=== PATIENT | male | born 1935 | race Caucasian/White ===

== ENCOUNTER 2016-12-01 11:00 | Outpatient (CLI) | payer MEDICARE | END 2016-12-01 11:01 | disposition home or self-care (01) | LOC: LAB.F 11:00 | PROVIDERS: ATTEND Internal Medicine Cardiovascular Disease | DX: I42.9 Cardiomyopathy, unspecified (principal); I48.2 Chronic atrial fibrillation | CPT/HCPCS: 85610 ==

== ENCOUNTER 2016-12-05 07:09 | Outpatient (CLI) | payer MEDICARE | END 2016-12-05 07:10 | disposition home or self-care (01) | LOC: LAB.F 07:09 | PROVIDERS: ATTEND Internal Medicine Cardiovascular Disease | DX: I42.9 Cardiomyopathy, unspecified (principal); I48.2 Chronic atrial fibrillation | CPT/HCPCS: 85610 ==

== ENCOUNTER 2016-12-08 07:15 | Outpatient (CLI) | payer MEDICARE | END 2016-12-08 07:16 | disposition home or self-care (01) | LOC: LAB.F 07:15 | PROVIDERS: ATTEND Internal Medicine Cardiovascular Disease | DX: I42.9 Cardiomyopathy, unspecified (principal); I48.2 Chronic atrial fibrillation | CPT/HCPCS: 85610 ==

== ENCOUNTER 2016-12-12 07:03 | Outpatient (CLI) | payer MEDICARE | END 2016-12-12 07:04 | disposition home or self-care (01) | LOC: LAB.F 07:03 | PROVIDERS: ATTEND Internal Medicine Cardiovascular Disease | DX: I42.9 Cardiomyopathy, unspecified (principal); I48.2 Chronic atrial fibrillation | CPT/HCPCS: 85610 ==

== ENCOUNTER 2016-12-19 07:09 | Outpatient (CLI) | payer MEDICARE | END 2016-12-19 07:10 | disposition home or self-care (01) | LOC: LAB.F 07:09 | PROVIDERS: ATTEND Internal Medicine Cardiovascular Disease | DX: I42.9 Cardiomyopathy, unspecified (principal) | CPT/HCPCS: 85610 ==

== ENCOUNTER 2016-12-29 07:07 | Outpatient (CLI) | payer MEDICARE | END 2016-12-29 07:08 | disposition home or self-care (01) | LOC: LAB.F 07:07 | PROVIDERS: ATTEND Internal Medicine Cardiovascular Disease | DX: I42.9 Cardiomyopathy, unspecified (principal); I48.2 Chronic atrial fibrillation | CPT/HCPCS: 85610 ==

== ENCOUNTER 2017-01-09 07:07 | Outpatient (CLI) | payer MEDICARE | END 2017-01-09 07:08 | disposition home or self-care (01) | LOC: LAB.F 07:07 | PROVIDERS: ATTEND Internal Medicine Cardiovascular Disease | DX: I42.9 Cardiomyopathy, unspecified (principal); I48.2 Chronic atrial fibrillation | CPT/HCPCS: 85610 ==

== ENCOUNTER 2017-03-28 09:59 | Outpatient (CLI) | payer MEDICARE | END 2017-03-28 10:00 | disposition home or self-care (01) | LOC: LAB.F 09:59 | PROVIDERS: ATTEND Pharmacist Pharmacist Clinician (PhC)/ Clinical Pharmacy Specialist | DX: I42.9 Cardiomyopathy, unspecified (principal); I48.2 Chronic atrial fibrillation | CPT/HCPCS: 85610 ==

== ENCOUNTER 2017-04-27 09:11 | Outpatient (CLI) | payer MEDICARE | END 2017-04-27 09:12 | disposition home or self-care (01) | LOC: LAB.F 09:11 | PROVIDERS: ATTEND Internal Medicine Cardiovascular Disease | DX: I42.9 Cardiomyopathy, unspecified (principal); I48.2 Chronic atrial fibrillation | CPT/HCPCS: 85610 ==

== ENCOUNTER 2017-05-28 08:52 | Outpatient (CLI) | payer MEDICARE | END 2017-05-28 08:53 | disposition home or self-care (01) | LOC: LAB.F 08:52 | PROVIDERS: ATTEND Internal Medicine Cardiovascular Disease | DX: I42.9 Cardiomyopathy, unspecified (principal); I48.2 Chronic atrial fibrillation | CPT/HCPCS: 85610 ==

== ENCOUNTER 2017-06-22 07:23 | Outpatient (CLI) | payer MEDICARE ==
[2017-06-22 11:10] LABS: ALT ALANINE AMINOTRANSFERASE 22 IU/L (10-60); AST ASPARTATE AMINOTRANSFERASE 16 IU/L (10-42); CHOL/HDL RATIO 2.6 (<5.0); CHOLESTEROL 125 mg/dL; HDL CHOLESTEROL 49 mg/dL; LDL CHOLESTEROL,CALCULATED 61 mg/dL; LDL/HDL RATIO 1.2 (<3.6); VLDL CHOLESTEROL 15 mg/dL
== END 2017-06-22 07:24 | disposition home or self-care (01) ==
LOC: LAB.F 07:23
PROVIDERS: ATTEND Internal Medicine Cardiovascular Disease
DX: I42.9 Cardiomyopathy, unspecified (principal); I48.2 Chronic atrial fibrillation; Z79.899 Other long term (current) drug therapy
CPT/HCPCS: 36415; 80061; 83721; 84450; 84460; 85610

== ENCOUNTER 2017-07-11 08:11 | Outpatient (CLI) | payer MEDICARE | END 2017-07-11 08:12 | disposition home or self-care (01) | LOC: LAB.F 08:11 | PROVIDERS: ATTEND Internal Medicine Cardiovascular Disease | DX: I42.9 Cardiomyopathy, unspecified (principal); I48.2 Chronic atrial fibrillation | CPT/HCPCS: 85610 ==

== ENCOUNTER 2017-08-08 07:08 | Outpatient (CLI) | payer MEDICARE | END 2017-08-08 07:09 | disposition home or self-care (01) | LOC: LAB.F 07:08 | PROVIDERS: ATTEND Internal Medicine Cardiovascular Disease | DX: I42.9 Cardiomyopathy, unspecified (principal); I48.2 Chronic atrial fibrillation | CPT/HCPCS: 85610 ==

== ENCOUNTER 2017-09-05 07:46 | Outpatient (CLI) | payer MEDICARE | END 2017-09-05 07:47 | disposition home or self-care (01) | LOC: LAB.F 07:46 | PROVIDERS: ATTEND Internal Medicine Cardiovascular Disease | DX: I42.9 Cardiomyopathy, unspecified (principal); I48.2 Chronic atrial fibrillation | CPT/HCPCS: 85610 ==

== ENCOUNTER 2017-09-10 09:17 | Outpatient (CLI) | payer MEDICARE | END 2017-09-10 09:18 | disposition home or self-care (01) | LOC: LAB.F 09:17 | PROVIDERS: ATTEND Internal Medicine Cardiovascular Disease | DX: I42.9 Cardiomyopathy, unspecified (principal); I48.2 Chronic atrial fibrillation | CPT/HCPCS: 85610 ==

== ENCOUNTER 2017-10-03 07:11 | Outpatient (CLI) | payer MEDICARE | END 2017-10-03 07:12 | disposition home or self-care (01) | LOC: LAB.F 07:11 | PROVIDERS: ATTEND Internal Medicine Cardiovascular Disease | DX: I42.9 Cardiomyopathy, unspecified (principal); I48.2 Chronic atrial fibrillation | CPT/HCPCS: 85610 ==

== ENCOUNTER 2017-10-31 07:09 | Outpatient (CLI) | payer MEDICARE | END 2017-10-31 07:10 | disposition home or self-care (01) | LOC: LAB.F 07:09 | PROVIDERS: ATTEND Internal Medicine Cardiovascular Disease | DX: I48.2 Chronic atrial fibrillation (principal) | CPT/HCPCS: 85610 ==

== ENCOUNTER 2017-11-28 07:16 | Outpatient (CLI) | payer MEDICARE | END 2017-11-28 07:17 | disposition home or self-care (01) | LOC: LAB.F 07:16 | PROVIDERS: ATTEND Internal Medicine Cardiovascular Disease | DX: I42.9 Cardiomyopathy, unspecified (principal); I48.2 Chronic atrial fibrillation | CPT/HCPCS: 85610 ==

== ENCOUNTER 2017-12-26 07:16 | Outpatient (CLI) | payer MEDICARE | END 2017-12-26 07:17 | disposition home or self-care (01) | LOC: LAB.F 07:16 | PROVIDERS: ATTEND Internal Medicine Cardiovascular Disease | DX: I42.9 Cardiomyopathy, unspecified (principal); I48.2 Chronic atrial fibrillation | CPT/HCPCS: 85610 ==

== ENCOUNTER 2018-01-23 07:25 | Outpatient (CLI) | payer MEDICARE | END 2018-01-23 07:26 | disposition home or self-care (01) | LOC: LAB.F 07:25 | PROVIDERS: ATTEND Internal Medicine Cardiovascular Disease | DX: I42.9 Cardiomyopathy, unspecified (principal); I48.2 Chronic atrial fibrillation | CPT/HCPCS: 85610 ==

== ENCOUNTER 2018-02-20 07:06 | Outpatient (CLI) | payer MEDICARE | END 2018-02-20 07:07 | disposition home or self-care (01) | LOC: LAB.F 07:06 | PROVIDERS: ATTEND Internal Medicine Cardiovascular Disease | DX: I42.9 Cardiomyopathy, unspecified (principal); I48.2 Chronic atrial fibrillation | CPT/HCPCS: 85610 ==

== ENCOUNTER 2018-03-06 09:44 | Outpatient (CLI) | payer MEDICARE ==
[2018-03-06 18:23] LABS: INR 2.5 (0.8-1.2); PT - PROTHROMBIN TIME 28.3 secs (9.9-12.6)
== END 2018-03-06 09:45 | disposition home or self-care (01) ==
LOC: LAB.F 09:44
PROVIDERS: ATTEND Internal Medicine Cardiovascular Disease
DX: I42.9 Cardiomyopathy, unspecified (principal); I48.2 Chronic atrial fibrillation
CPT/HCPCS: 36415; 85610

== ENCOUNTER 2018-03-20 08:15 | Outpatient (CLI) | payer MEDICARE ==
[2018-03-20 10:45] LABS: CALCIUM 8.6 mg/dL (8.5-10.3); CREATININE 0.9 mg/dL (0.6-1.2)
== END 2018-03-20 08:16 | disposition home or self-care (01) ==
LOC: LAB.F 08:15
PROVIDERS: ATTEND Internal Medicine Cardiovascular Disease
DX: I48.2 Chronic atrial fibrillation (principal); I42.9 Cardiomyopathy, unspecified
CPT/HCPCS: 36415; 80048; 85610

== ENCOUNTER 2018-04-10 15:11 | Outpatient (CLI) | payer MEDICARE | END 2018-04-10 15:12 | disposition home or self-care (01) | LOC: LAB.F 15:11 | PROVIDERS: ATTEND Internal Medicine Cardiovascular Disease | DX: I48.2 Chronic atrial fibrillation (principal) | CPT/HCPCS: 85610 ==

== ENCOUNTER 2018-05-01 07:06 | Outpatient (CLI) | payer MEDICARE | END 2018-05-01 07:07 | disposition home or self-care (01) | LOC: LAB.F 07:06 | PROVIDERS: ATTEND Internal Medicine Cardiovascular Disease | DX: I48.2 Chronic atrial fibrillation (principal) | CPT/HCPCS: 85610 ==

== ENCOUNTER 2018-05-15 07:04 | Outpatient (CLI) | payer MEDICARE | END 2018-05-15 07:05 | disposition home or self-care (01) | LOC: LAB.F 07:04 | PROVIDERS: ATTEND Internal Medicine Cardiovascular Disease | DX: I48.2 Chronic atrial fibrillation (principal) | CPT/HCPCS: 85610 ==

== ENCOUNTER 2018-06-05 07:34 | Outpatient (CLI) | payer MEDICARE | END 2018-06-05 07:35 | disposition home or self-care (01) | LOC: LAB.F 07:34 | PROVIDERS: ATTEND Internal Medicine Cardiovascular Disease | DX: I48.2 Chronic atrial fibrillation (principal) | CPT/HCPCS: 85610 ==

== ENCOUNTER 2018-07-03 08:24 | Outpatient (CLI) | payer MEDICARE | END 2018-07-03 08:25 | disposition home or self-care (01) | LOC: LAB.F 08:24 | PROVIDERS: ATTEND Internal Medicine Cardiovascular Disease | DX: I48.2 Chronic atrial fibrillation (principal) | CPT/HCPCS: 85610 ==

== ENCOUNTER 2018-07-23 14:41 | Outpatient (CLI) | payer MEDICARE | END 2018-07-23 14:42 | disposition home or self-care (01) | LOC: LAB.F 14:41 | PROVIDERS: ATTEND Internal Medicine Cardiovascular Disease | DX: I48.2 Chronic atrial fibrillation (principal) | CPT/HCPCS: 85610 ==

== ENCOUNTER 2018-07-29 08:53 | Day surgery (SDC) | payer MEDICARE ==
[2018-07-29] MEDS ORDERED: LACTATED RINGERS 1,000 ML IV ONE ×2 (09:21→10:37)
[2018-07-29] MEDS ORDERED: fentaNYL 100 MCG/2 ML VIAL IVP ONE (09:45)
[2018-07-29] MEDS ORDERED: MIDAZOLAM 2 MG/2 ML VIAL IVP ONE (09:45)
[2018-07-29 11:13] VITALS: BP 102/66
== END 2018-07-29 08:54 | disposition home or self-care (01) ==
LOC: SDS 08:53
PROVIDERS: ATTEND Surgery
PROC: 0DBP8ZZ Excision of Rectum, Via Natural or Artificial Opening Endoscopic (ICD-10-PCS; principal; 2018-07-29 10:30)
DX: Z12.11 Encounter for screening for malignant neoplasm of colon (principal); K62.1 Rectal polyp; K64.8 Other hemorrhoids; K57.30 Diverticulosis of large intestine without perforation or abscess without bleeding; I10 Essential (primary) hypertension; I49.9 Cardiac arrhythmia, unspecified; D68.9 Coagulation defect, unspecified; D64.9 Anemia, unspecified; Z87.891 Personal history of nicotine dependence; Z79.01 Long term (current) use of anticoagulants
CPT/HCPCS: 45385; 85610; J7120

== ENCOUNTER 2018-08-14 10:59 | Outpatient (CLI) | payer MEDICARE ==
--- NOTE | 2018-08-14 13:08 | Ultrasound Report ---
Reason: TESTICULAR PAIN Procedure Date: 08/14/2018 Accession Number: [id number] / [id number] Procedure: US - Testicle w/Doppler CPT Code: FULL RESULT: EXAM: SCROTAL ULTRASOUND EXAM DATE: 08/14/2018 11:39 AM. CLINICAL HISTORY: Testicular pain. COMPARISON: None. TECHNIQUE: Real-time scanning was performed with static images obtained. Color-flow images were utilized. FINDINGS: Right: Testis: 3.3 x 2.4 x 2.3 cm. Normal size and echotexture. No mass, calcification, or abnormal blood flow. Epididymis: 0.7 x 0.9 x 1.3 cm. A few epididymal cysts are noted. Hydrocele: Moderate, minimally complex hydrocele. Varicocele: None. Left: Testis: 3.2 x 2.3 x 2.2 cm. Normal size and echotexture. No mass, calcification, or abnormal blood flow. Epididymis: 0.9 x 0.7 x 1.0 cm. A few epididymal head cysts are noted. Hydrocele: Moderate size, minimally complex hydrocele. Varicocele: None. IMPRESSION: Bilateral hydrocele. RADIA
== END 2018-08-14 11:00 | disposition home or self-care (01) ==
LOC: DI 10:59
PROVIDERS: ATTEND Nurse Practitioner Family
DX: N43.3 Hydrocele, unspecified (principal); I48.2 Chronic atrial fibrillation
CPT/HCPCS: 76870; 85610; 93975

== ENCOUNTER 2018-08-14 13:43 | Outpatient (CLI) | payer MEDICARE | END 2018-08-14 13:44 | disposition home or self-care (01) | LOC: LAB.F 13:43 | PROVIDERS: ATTEND Internal Medicine Cardiovascular Disease | DX: I48.2 Chronic atrial fibrillation (principal) | CPT/HCPCS: 85610 ==

== ENCOUNTER 2018-09-11 07:13 | Outpatient (CLI) | payer MEDICARE | END 2018-09-11 07:14 | disposition home or self-care (01) | LOC: LAB.F 07:13 | PROVIDERS: ATTEND Internal Medicine Cardiovascular Disease | DX: I48.2 Chronic atrial fibrillation (principal) | CPT/HCPCS: 85610 ==

== ENCOUNTER 2018-09-29 16:38 | Outpatient (CLI) | payer MEDICARE | END 2018-09-29 16:39 | disposition critical access hospital (66) | LOC: EMS 16:38 | PROVIDERS: ATTEND Surgery | DX: R53.1 Weakness (principal); R00.1 Bradycardia, unspecified | CPT/HCPCS: A0425; A0427 ==

== ENCOUNTER 2018-09-29 17:09 | Observation (INO) | payer MEDICARE ==
--- NOTE | 2018-09-29 17:38 | ED Physician Documentation ---
PD HPI DYSPNEA - Stated complaint Stated Complaint: BRADYCARDIA - Chief complaint Chief Complaint: Cardiac - History obtained from History obtained from: Patient - History of Present Illness Timing - onset: Today (He states he believes he double dosed on his diltiazem and furosemide earlier today. He took his initial dose about 8 AM and then another dose perhaps an hour or 2 later thinking he had not. He then remembered he did take one earlier. He thought he was feeling okay through the day until mid afternoon about 3:00 when he started feeling general weakness and lightheadedness with walking around. He denied any chest pain or dyspnea per se. He denied any near syncope. He did come here with continued lightheaded symptoms. Here he was found to be bradycardic in the 30s and blood pressure initially 107/56 but did get transiently hypotensive down to 87 systolic. He was still awake and alert and conversant with that.) Timing - onset during: Light activity Timing - duration: Hours Timing - details: Gradual onset (over few hours), Still present Inciting event(s): Other (took 2 doses of his diltiazem unintentionally this morning.). No: Out of meds, URI Improved by: Rest Worsened by: Exertion Associated symptoms: No: Fever, Cough, Hemoptysis, Wheezing, Bilateral edema Similar symptoms before: Has not had sx before (He has been on the same doses of metoprolol and diltiazem for the last couple of years without any similar episodes in the past.) Recently seen: Not recently seen Review of Systems Constitutional: denies: Fever, Chills Nose: denies: Rhinorrhea / runny nose, Congestion Throat: denies: Sore throat Cardiac: denies: Chest pain / pressure, Palpitations Respiratory: reports: Dyspnea. denies: Cough GI: denies: Abdominal Pain, Nausea, Vomiting, Diarrhea, Bloody / black stool Musculoskeletal: denies: Extremity swelling Neurologic: reports: Generalized weakness. denies: Near syncope, Syncope Psychiatric: denies: Depressed Endocrine: denies: Polydypsia Immunocompromised: denies: Immunocompromised PD PAST MEDICAL HISTORY - Past Medical History Cardiovascular: Hypertension, High cholesterol, Atrial fibrillation - Past Surgical History Past Surgical History: Yes - Present Medications Home Medications: Ambulatory Orders Medication Instructions Recorded Confirmed Ascorbic Acid [Vitamin C] 1 - 2 tab PO DAILY 07/25/18 09/29/18 Aspirin [Aspirin EC] 81 mg PO DAILY 07/25/18 09/29/18 Atorvastatin Calcium 40 mg PO QPM 07/25/18 09/29/18 Ferrous Sulfate 325 mg PO DAILY 07/25/18 09/29/18 Furosemide [Lasix] 20 mg PO DAILY 07/25/18 09/29/18 Latanoprost/Pf [Latanoprost 0.005% 1 drops EACHEYE QPM 07/25/18 09/29/18 Eye Drop] Lisinopril 2.5 mg PO DAILY 07/25/18 09/29/18 Metoprolol Tartrate [Lopressor] 25 mg PO BID 07/25/18 09/29/18 Travoprost [Travatan Z] 1 drops EACHEYE QPM 07/25/18 09/29/18 Warfarin [Coumadin] 2.5 mg PO DAILY 07/25/18 09/29/18 Warfarin [Coumadin] 5 mg PO 1400 07/25/18 09/29/18 dilTIAZem HCl [Diltiazem ER] 120 mg PO DAILY 07/25/18 09/29/18 - Allergies Allergies/Adverse Reactions: Allergies Allergy/AdvReac Type Severity Reaction Status Date / Time No Known Drug Allergies Allergy Verified 09/29/18 17:25 - Social History Does the pt smoke?: No Smoking Status: Never smoker Does the pt drink ETOH?: Yes ETOH Use: Beer Does the pt have substance abuse?: No - Immunizations Immunizations are current?: Yes - POLST Patient has POLST: No PD ED PE NORMAL - Vitals Vital signs reviewed: Yes (Initially mild hypotension and a heart rate of 36. He is however awake and) - General General: Alert and oriented X 3, No acute distress, Well developed/nourished - HEENT HEENT: Pharynx benign - Neck Neck: Supple, no meningeal sign, No adenopathy, No JVD - Cardiac Cardiac: No murmur. No: RRR (bradycardic) - Respiratory Respiratory: Clear bilaterally - Abdomen Abdomen: Soft, Non tender - Back Back: No CVA TTP - Derm Derm: Normal color, Warm and dry - Extremities Extremities: No deformity, No tenderness to palpate, Normal ROM s pain, No edema, No calf tenderness / cord - Neuro Neuro: Alert and oriented X 3, No motor deficit, Normal speech Eye Opening: Spontaneous Motor: Obeys Commands Verbal: Oriented GCS Score: 15 - Psych Psych: Normal mood Results - Vitals Vitals: Vital Signs - 24 hr 09/29/18 17:15 Temperature 35.9 C L Heart Rate 36 L Respiratory 16 Rate Blood Pressure 107/56 L O2 Saturation 97 Oxygen O2 Source Room air - EKG (time done) 17:20 Rate: Rate (enter#) (36) Rhythm: Other (junctional bradycardia) [place]: Normal QRS: Normal Ischemia: Normal ST segments. No: ST elevation c/w ischemia, ST depression - Labs Labs: Laboratory Tests 09/29/18 09/29/18 09/29/18 17:33 17:33 17:33 WBC 11.2 H RBC 4.42 L Hgb 13.2 L Hct 39.6 L MCV 89.6 MCH 29.9 MCHC 33.3 RDW 14.3 Plt Count 146 MPV 11.1 Neut # (Auto) 9.4 H Lymph # (Auto) 1.[address] [place] # (Auto) 0.6 Eos # (Auto) 0.1 Baso # (Auto) 0.1 Absolute Nucleated RBC 0.00 Nucleated RBC % 0.0 Manual Slide Review Indicated Platelet Estimate NORMAL (130-450,000) Platelet Morphology NORMAL APPEARANCE RBC Morph Micro Appear 1+ SCHISTOCYTES PT INR Sodium 140 Potassium 5.9 H Chloride 106 Carbon Dioxide 24 Anion Gap 10.0 BUN 38 H Creatinine 1.5 H Estimated GFR (MDRD) 44 L Glucose 146 H Calcium 8.9 Magnesium Total Bilirubin 1.3 H AST 190 H ALT 134 H Alkaline Phosphatase 142 H Troponin I < 0.04 B-Natriuretic Peptide Total Protein 6.2 L Albumin 3.9 Globulin 2.3 Albumin/Globulin Ratio 1.7 Lipase 54 H 09/29/18 09/29/18 09/29/18 17:33 17:33 17:33 WBC RBC Hgb Hct MCV MCH MCHC RDW Plt Count MPV Neut # (Auto) Lymph # (Auto) [place] # (Auto) Eos # (Auto) Baso # (Auto) Absolute Nucleated RBC Nucleated RBC % Manual Slide Review Platelet Estimate Platelet Morphology RBC Morph Micro Appear PT 32.0 H INR 2.9 H Sodium Potassium Chloride Carbon Dioxide Anion Gap BUN Creatinine Estimated GFR (MDRD) Glucose Calcium Magnesium 2.3 Total Bilirubin AST ALT Alkaline Phosphatase Troponin I B-Natriuretic Peptide 557 H Total Protein Albumin Globulin Albumin/Globulin Ratio Lipase - Rads (name of study) chest xray Radiology: Prelim report reviewed (no sigificant acute findings. ), See rad report PD MEDICAL DECISION MAKING - ED course Complexity details: reviewed results, re-evaluated patient (The patient's blood pressure did respond to IV fluids. His heart rate was improving with glucagon calcium and insulin/glucose. We had atropine available but did not give any doses initially with concern for causing a tachyarrhythmia but would give it if his blood pressure heart rate were slow enough for low enough to give cognitive impairment), considered differential, d/w patient Departure - Departure Disposition: ED Place in Observation Clinical Impression: Bradycardia, Transient hypotension, Lightheadedness Calcium channel gurvinder overdose Qualifiers: Encounter type: initial encounter Injury intent: accidental or unintentional Qualified Code(s): T46.1X1A - Poisoning by calcium-channel blockers, accidental (unintentional), initial encounter Condition: Stable Record reviewed to determine appropriate education?: Yes Discharge Date/Time: 09/29/18 18:52
[2018-09-29 17:46] LABS: BASOPHILS # (AUTO) 0.1 10^3/uL (0.0-0.1); BASOPHILS % (AUTO) 0.9 %; EOSINOPHILS # (AUTO) 0.1 10^3/uL (0.0-0.7); EOSINOPHILS % (AUTO) 1.1 %; HGB - HEMOGLOBIN 13.2 g/dL (14.0-18.0); LYMPHOCYTES % (AUTO) 8.8 %; MEAN CORPUSCULAR HEMOGLOBIN 29.9 pg (27.0-31.0); MEAN CORPUSCULAR HGB CONC 33.3 g/dL (32.0-36.0); MEAN CORPUSCULAR VOLUME 89.6 fL (80.0-94.0); MEAN PLATELET VOLUME 11.1 fL (7.4-11.4); MONOCYTES # (AUTO) 0.6 10^3/uL (0.0-1.0); MONOCYTES % (AUTO) 5.6 %; NEUTROPHILS # (AUTO) 9.4 10^3/uL (1.5-6.6); NEUTROPHILS % (AUTO) 83.6 %; PLT - PLATELET COUNT 146 10^3/uL (130-450); RED BLOOD COUNT 4.42 10^6/uL (4.70-6.10); RED CELL DISTRIBUTION WIDTH 14.3 % (12.0-15.0); WHITE BLOOD COUNT 11.2 x10^3/uL (4.8-10.8)
--- NOTE | 2018-09-29 17:50 | XRAY Report ---
Reason: bradycardia Procedure Date: 09/29/2018 Accession Number: [id number] / [id number] Procedure: XR - Chest 1 View X-Ray CPT Code: 65919 FULL RESULT: EXAM: CHEST RADIOGRAPHY EXAM DATE: 09/29/2018 05:44 PM. CLINICAL HISTORY: Bradycardia. COMPARISON: None. TECHNIQUE: 1 view. FINDINGS: Lungs/Pleura: Minor streaky opacities are seen in the left lung base likely due to atelectasis or scarring. There is no consolidation. No effusion is present. There is no vascular congestion or pneumothorax. Mediastinum: Cardiac silhouette is borderline enlarged. No vascular congestion. Other: None. IMPRESSION: 1. No CHF/fluid overload. 2. Minor left basilar atelectasis/scarring. RADIA
[2018-09-29] MEDS ORDERED: GLUCAGON 1 MG/ML VIAL IVP STA (17:53)
[2018-09-29] MEDS ORDERED: SODIUM CHLORIDE 0.9% 1,000 ML IV ONE (17:53)
[2018-09-29] MEDS ORDERED: INSULIN REGULAR HUMAN 100 UNIT/1 ML 10 ML MDV IVP STA (17:55)
[2018-09-29] MEDS ORDERED: DEXTROSE 50% ABBOJECT 25 GM/50 ML SYRINGE IVP STA (17:55)
[2018-09-29] MEDS ORDERED: CALCIUM GLUCONATE 1,000 MG in SODIUM CHLORIDE 0.9% 50 ML IV STA (17:56)
[2018-09-29] MEDS ORDERED: WATER FOR INJECTION,STERILE 10 ML ONE (18:09)
[2018-09-29 18:14] LABS: ALBUMIN 3.9 g/dL (3.2-5.5); ALBUMIN/GLOBULIN RATIO 1.7 (1.0-2.2); BILIRUBIN,TOTAL 1.3 mg/dL (0.2-1.0); CALCIUM 8.9 mg/dL (8.5-10.3); CREATININE 1.5 mg/dL (0.6-1.2); TOTAL PROTEIN 6.2 g/dL (6.7-8.2)
[2018-09-29 18:15] LABS: PLATELET ESTIMATE, MANUAL NORMAL (130-450,000) (NORMAL); PLATELET MORPHOLOGY NORMAL APPEARANCE (NORMAL)
[2018-09-29] MEDS ORDERED: PROCHLORPERAZINE 10 MG/2 ML VIAL IVP PRN (18:37)
[2018-09-29] MEDS ORDERED: SODIUM CHLORIDE FLUSH 0.9% 10 ML SYRINGE IVP PRN (18:37)
[2018-09-29] MEDS ORDERED: ACETAMINOPHEN 325 MG TABLET PO PRN (18:37)
[2018-09-29] MEDS ORDERED: ATROPINE 8 MG/20 ML VIAL IVP PRN (18:51)
[2018-09-29] MEDS ORDERED: DOPamine 800 MG/500 ML 800 MG/500 ML BAG IV SCH (19:00)
[2018-09-29] MEDS ORDERED: DEXTROSE 5%-0.9% NACL 1,000 ML IV SCH (19:00)
[2018-09-29 19:15] LABS: INR 2.9 (0.8-1.2)
--- NOTE | 2018-09-29 19:29 | HISTORY & PHYSICAL EXAMINATION ---
DATE OF SERVICE: 09/29/2018 Physician: Hilary Irby MD HISTORY OF PRESENT ILLNESS: This is an 83-year-old white male with a history of atrial fibrillation on Cardizem and Coumadin. He also takes metoprolol and lisinopril. Patient could not remember if he took his morning medications and therefore he took a dose of them again about 2 hours later, and several hours after that he started to develop severe lightheadedness and weakness and came to the emergency room. There was no chest pain, shortness of breath, no syncope. There was no prior history of this and it was not an intentional overdose. In the ER the patient found to have a heart rate of 30 in junctional bradycardia, as well as hypotensive with a systolic blood pressure of 87 mmHg. With this, he is warm and dry and conversing. He is being admitted to the ICU for unintentional overdose of heart rate slowing medications causing severe bradycardia and hypotension. PAST MEDICAL HISTORY 1. Atrial fibrillation, on metoprolol, Cardizem and warfarin. 2. Hyperlipidemia. 3. Hypertension. ALLERGIES: NONE. MEDICATIONS: 1. Vitamin C daily. 2. Aspirin 81 mg daily. 3. Lipitor 40 mg every night. 4. Ferrous sulfate 325 mg daily. 5. Lasix 20 mg daily. 6. Latanoprost eyedrops. 7. Lisinopril 2.5 mg daily. 8. Metoprolol tartrate 25 mg b.i.d. 9. Travatan eyedrops every night. 10. Warfarin 2.5 alternating with 5 mg every day. 11. Diltiazem ER 120 mg daily. SOCIAL HISTORY: Patient is a nonsmoker, who never smoked. Drinks beer twice a week. Has no illicit drug use history. He is a and lives alone, his 2 years ago. FAMILY HISTORY: No inherited diseases. REVIEW OF SYSTEMS: Patient does not have a POLST form signed or scanned into the electronic record. He thinks he had some kind of scan the found one small coronary blockage, he never had a coronary angiogram, two years ago when he developed Afib.. A comprehensive review of systems was performed and the pertinent positives are listed. The rest are negative. PHYSICAL EXAMINATION GENERAL: He is sitting up in bed, conversing normally. Warm and dry. VITAL SIGNS: Blood pressure currently 107/56 and down to 90 systolic intermittently. Heart rate is 36-50 in junctional bradycardia and Afib. He is afebrile. Room air saturation 97%. HEENT: Unremarkable. NECK: Without JVD. No carotid bruits. CHEST: Clear. HEART: Bradycardic, distant heart sounds, no audible murmur. ABDOMEN: Soft, nontender. EXTREMITIES: No edema. NEUROLOGIC: Grossly intact. LABORATORY DATA: White blood count 11.2, hemoglobin 13.2 with a normal MCV, platelet count normal at 146. No INR was done. Sodium 140, potassium 5.9, BUN 38, creatinine 1.5. His usual creatinine is 0.9. Bilirubin 1.3, AST 190, ALT 134, alkaline phosphatase 142. Troponin not detectable. BNP 557, lipase 54. The INR is still pending. Chest x-ray: No active pulmonary disease, normal cardiac size. EKG: Junctional bradycardia at a rate of 36. LVH voltage. No old EKG here, for comparison. IMPRESSION/DIAGNOSES 1. Unintentional overdose. 2. Junctional bradycardia. 3. Hypotension. 4. Chronic atrial fibrillation, he is prescribed two heart rate slowing medications and Coumadin. 5. Acute kidney injury. 6. Hyperkalemia. 7. Elevated liver function tests of unknown etiology. With mildly elevated BNP, consider passive congestion of liver. PLAN 1. Place patient in Observation status in the ICU. 2. Continue telemetry. 3. Begin dopamine IV to titrate to keep the heart rate near 60 or at least a mean arterial pressure of [address] external topical electrodes for temporary percutaneous pacing to use if needed in an emergency, with the temporary pacemaker in the room. As the Cardizem and Metoprolol wear off, these will be stopped. 5. Begin gentle IV hydration, watching his BNP. Cycle troponins x3. 6. Obtain an Echo to establish LV contractility, given the elevated BNP. 7. Social work consult regarding help with reminders about medications, so that this mistake does not happen again. 8. He has already received insulin and D50 in the ER for the hyperkalemia. 9. Watch his potassium later today, Kayexalate should be ordered if needed. 10. Follow his CMP daily. 11. CBC daily. DEEP VENOUS THROMBOSIS PROPHYLAXIS: Pharmacotherapy (with his Coumadin). CODE STATUS: FULL CODE. ATTESTATION: Patient is expected to be discharged or transferred to another facility within 96 hours: Yes. cc: Raheel Anderson MD TD: 09/29/2018 18:53 MTDD
[2018-09-29] MEDS ORDERED: TRAVOPROST 0.004% OPHTH DROPS 2.5 ML EACHEYE SCH (21:00)
[2018-09-29] MEDS ORDERED: LATANOPROST 0.005% OPHTH DROPS EACHEYE SCH (21:00)
[2018-09-29] MEDS: TIMOLOL 0.25% OPHTH DROPS EACHEYE SCH (21:19)
[2018-09-30] MEDS: SODIUM CHLORIDE FLUSH 0.9% 10 ML SYRINGE IVP SCH ×2 (00:02→08:30)
[2018-09-30 05:16] LABS: BASOPHILS # (AUTO) 0.1 10^3/uL (0.0-0.1); BASOPHILS % (AUTO) 0.6 %; EOSINOPHILS # (AUTO) 0.1 10^3/uL (0.0-0.7); EOSINOPHILS % (AUTO) 1.6 %; HGB - HEMOGLOBIN 12.3 g/dL (14.0-18.0); LYMPHOCYTES # (AUTO) 1.4 10^3/uL (1.5-3.5); LYMPHOCYTES % (AUTO) 17.8 %; MEAN CORPUSCULAR HEMOGLOBIN 30.4 pg (27.0-31.0); MEAN CORPUSCULAR VOLUME 89.4 fL (80.0-94.0); MONOCYTES # (AUTO) 0.7 10^3/uL (0.0-1.0); MONOCYTES % (AUTO) 9.1 %; NEUTROPHILS # (AUTO) 5.7 10^3/uL (1.5-6.6); NEUTROPHILS % (AUTO) 70.9 %; PLT - PLATELET COUNT 103 10^3/uL (130-450); RED BLOOD COUNT 4.05 10^6/uL (4.70-6.10); RED CELL DISTRIBUTION WIDTH 13.9 % (12.0-15.0); WHITE BLOOD COUNT 8.1 x10^3/uL (4.8-10.8)
[2018-09-30 05:23] LABS: INR 2.8 (0.8-1.2); PT - PROTHROMBIN TIME 31.1 secs (9.9-12.6)
[2018-09-30 05:26] LABS: ALBUMIN 3.3 g/dL (3.2-5.5); ALBUMIN/GLOBULIN RATIO 1.4 (1.0-2.2); BILIRUBIN,TOTAL 1.2 mg/dL (0.2-1.0); CALCIUM 8.5 mg/dL (8.5-10.3); MAGNESIUM 2.2 mg/dL (1.7-2.8); PHOSPHORUS 3.2 mg/dL (2.5-4.6); TOTAL PROTEIN 5.6 g/dL (6.7-8.2)
--- NOTE | 2018-09-30 07:41 | Discharge Plan ---
Discharge Plan Disposition: 01 Home, Self Care Condition: Stable Diet: Cardiac Activity Restrictions: Activity as Tolerated Shower Restrictions: No Driving Restrictions: No Instruction Topics: Bradycardia Additional Instructions or Follow Up instructions: You are in the hospital, in the ICU after you took your Cardizem, Lasix and possibly the Metoprolol in excess. This caused a dangerous, severely slow heart rate, which dropped your blood pressure and caused your lightheadedness and weakness. You may resume all your prehospital medications. You must come up with a better system of reminders of your medication dosing so as not to have this type of situation happen again. You may see your PCP and Dictating Transcribing Machine Servicer in follow-up. If you have new or worsening symptoms, call your provider or come to the ER. No Smoking: If you smoke, Please STOP! Call for help. Follow-up with: Raheel Anderson MD [Primary Care Provider] -
[2018-09-30] MEDS: TIMOLOL 0.25% OPHTH DROPS EACHEYE SCH (08:35)
[2018-09-30] MEDS ORDERED: FAMOTIDINE 20 MG TABLET PO SCH (09:00)
[2018-09-30] MEDS ORDERED: ASPIRIN EC 81 MG TABLET PO SCH (09:00)
[2018-09-30] MEDS ORDERED: diltiaZEM CD 120 MG CAPSULE PO SCH (09:00)
[2018-09-30 09:30] VITALS: BP 138/67
--- NOTE | 2018-10-02 10:17 | DISCHARGE SUMMARY ---
Discharge Summary Admit Date: 09/29/18 Discharge Date: 09/30/18 Discharging Provider: Dr Hilary Irby Primary Care Provider: Dr Raheel Anderson Code Status: Attempt Resuscitation Condition at Discharge: Stable Discharge Disposition: 01 Home, Self Care - DIAGNOSES Admission Diagnoses: 1) Unintentional overdose of Ca-channel blockers 2) Junctional bradycardia 3) Hypotension 4) Chronic Afib Discharge Diagnoses with Status of Each Condition: 1) Unintentional overdose of Ca-channel blockers - He stated this was a mistake, was seen by SW while here 2) Junctional bradycardia - Resolved 3) Hypotension - Resolved 4) Chronic Afib - Stable 5) Acute kidney injury - Resolved with overnight iv hydration 6) Hyperkalemia - Resolved 7) Elevated LFTs - Improved - HPI History of Present Illness: This is an 83 y/o male, still working in the [employer] field, who has a history of chronic Afib, takes Coumadin. He ingested his usual morning dose of Cardizem and Lasix twice by mistake, two hours apart, and developed lightheadedness and severe muscle weakness, no syncope, chest pain or SOB. He presented to the ER in junctional bradycardia at a rate in the 30's and BP intermittently hypotensive at 90 mmHg systolic. He was placed in the ICU, in Observation status, for management of unintentional overdose of Ca-channel blockers. - CONSULTS | PROCEDURES Consultations: None - HOSPITAL COURSE Hospital Course: 1) Unintentional overdose of Ca-channel blockers - He stated this was a mistake, since he usually has a system of record keeping with "check marking" if he took his medications. He was seen by SW while here, and offered different methods for staying on schedule, he declined those, and said he is usually very precise and careful. 2) Junctional bradycardia - He was placed in the ICU and had topical electrodes placed and the external pacemaker machine was at his bedside, in case of need for emergency external pacing. No pacing or Atropine administration was needed, however, as the medication effects wore off. 3) Hypotension - He was started on iv hydration. Dopamine iv was ordered to keep his mean arterial pressure >65 mmHg, but it did not need to be used, as the medication effects slowly wore off. 4) Chronic Afib - By the morning, he was out of junctional kayla, and in Afib at rates of 80-110. He did get his usual morning heart rate-slowing medications therefore. 5) Acute kidney injury - He received overnight iv hydration and his BUN/creat improved from 38/1.5 to 28/1.0. 6) Hyperkalemia - He did receive Insulin and D50 in the ER x1 for an admission Potassium of 5.9. No Kayexelate was needed, as the serum Potassium improved to 4.4 overnight and 4.2 by discharge, with iv hydration as the renal function improved. 7) Elevated LFTs - These improved (AST 190 > 81, ALT 134 > 111, AlkPhos 142 > 115) and were felt to be related to the renal failure, possibly Hepato-Renal syndrome, since there was no evidence of volume overload clinically, or by Echo, to consider passive liver congestion. and there was no excessive alcohol use history. - ALLERGIES Allergies/Adverse Reactions: Allergies Allergy/AdvReac Type Severity Reaction Status Date / Time No Known Drug Allergies Allergy Verified 09/29/18 17:25 - MEDICATIONS Home Medications: Ambulatory Orders Medication Instructions Recorded Confirmed Ascorbic Acid [Vitamin C] 1 - 2 tab PO DAILY 07/25/18 09/29/18 Aspirin [Aspirin EC] 81 mg PO DAILY 07/25/18 09/29/18 Atorvastatin Calcium 40 mg PO QPM 07/25/18 09/29/18 Ferrous Sulfate 325 mg PO DAILY 07/25/18 09/29/18 Furosemide [Lasix] 20 mg PO DAILY 07/25/18 09/29/18 Latanoprost/Pf [Latanoprost 0.005% 1 drops EACHEYE QPM 07/25/18 09/29/18 Eye Drop] Lisinopril 2.5 mg PO DAILY 07/25/18 09/29/18 Metoprolol Tartrate [Lopressor] 25 mg PO BID 07/25/18 09/29/18 Travoprost [Travatan Z] 1 drops EACHEYE QPM 07/25/18 09/29/18 Warfarin [Coumadin] 2.5 mg PO DAILY 07/25/18 09/29/18 Warfarin [Coumadin] 5 mg PO 1400 07/25/18 09/29/18 dilTIAZem HCl [Diltiazem 24Hr ER 120 mg PO DAILY 07/25/18 09/29/18 (Xr)] - PHYSICAL EXAM AT DISCHARGE General Appearance: positive: No acute distress, Alert Eyes Bilateral: positive: Normal inspection, EOMI ENT: positive: ENT inspection nml Neck: positive: Nml inspection, No JVD Respiratory: positive: No respiratory distress, Breath sounds nml Cardiovascular: positive: No murmur Abdomen: positive: Non-tender Extremities: positive: No pedal edema - LABS Result Diagrams: 09/30/18 05:01 09/30/18 05:01 - DIAGNOSTIC IMAGING Diagnostic Imaging Results: Final report reviewed - FOLLOW UP Follow Up: See PCP in hospital follow-up. - TIME SPENT Time Spent in Discharge (Minutes): 25
== END 2018-09-30 09:30 | disposition home or self-care (01) ==
LOC: EDUNIT# → ED 17:09 → ICU 18:26
PROVIDERS: ADMIT Internal Medicine; ATTEND Internal Medicine
DX: T46.1X1A Poisoning by calcium-channel blockers, accidental (unintentional), initial encounter (principal); T50.1X1A Poisoning by loop [high-ceiling] diuretics, accidental (unintentional), initial encounter; R00.1 Bradycardia, unspecified; I95.2 Hypotension due to drugs; R42 Dizziness and giddiness; R53.1 Weakness; N17.9 Acute kidney failure, unspecified; E87.5 Hyperkalemia; R74.8 Abnormal levels of other serum enzymes; R40.2412 Glasgow coma scale score 13-15, at arrival to emergency department; I48.2 Chronic atrial fibrillation; I10 Essential (primary) hypertension; E78.5 Hyperlipidemia, unspecified; Z79.82 Long term (current) use of aspirin; Z79.899 Other long term (current) drug therapy; Z79.01 Long term (current) use of anticoagulants
CPT/HCPCS: 36415; 71045; 80053; 83690; 83735; 83880; 84100; 84132; 84484; 85025; 85610; 87150; 93005; 93306; 96361; 96365; 96375; 99284; A9270; G0378; J1815; J7040

== ENCOUNTER 2018-10-09 07:37 | Outpatient (CLI) | payer MEDICARE | END 2018-10-09 07:38 | disposition home or self-care (01) | LOC: LAB.F 07:37 | PROVIDERS: ATTEND Internal Medicine Cardiovascular Disease | DX: I48.2 Chronic atrial fibrillation (principal) | CPT/HCPCS: 85610 ==

== ENCOUNTER 2018-11-06 07:17 | Outpatient (CLI) | payer MEDICARE | END 2018-11-06 07:18 | disposition home or self-care (01) | LOC: LAB.S 07:17 | PROVIDERS: ATTEND Internal Medicine Cardiovascular Disease | DX: I48.2 Chronic atrial fibrillation (principal); I42.9 Cardiomyopathy, unspecified | CPT/HCPCS: 85610 ==

== ENCOUNTER 2018-12-11 07:13 | Outpatient (CLI) | payer MEDICARE | END 2018-12-11 07:14 | disposition home or self-care (01) | LOC: LAB.S 07:13 | PROVIDERS: ATTEND Internal Medicine Cardiovascular Disease | DX: I48.2 Chronic atrial fibrillation (principal) | CPT/HCPCS: 85610 ==

== ENCOUNTER 2019-01-15 08:03 | Outpatient (CLI) | payer MEDICARE | END 2019-01-15 08:04 | disposition home or self-care (01) | LOC: LAB.S 08:03 | PROVIDERS: ATTEND Internal Medicine Cardiovascular Disease | DX: I48.2 Chronic atrial fibrillation (principal) | CPT/HCPCS: 85610 ==

== ENCOUNTER 2019-02-19 07:35 | Outpatient (CLI) | payer MEDICARE | END 2019-02-19 07:36 | disposition home or self-care (01) | LOC: LAB.S 07:35 | PROVIDERS: ATTEND Internal Medicine Cardiovascular Disease | DX: I48.20 Chronic atrial fibrillation, unspecified (principal) | CPT/HCPCS: 85610 ==

== ENCOUNTER 2019-03-26 07:37 | Outpatient (CLI) | payer MEDICARE | END 2019-03-26 07:38 | disposition home or self-care (01) | LOC: LAB.S 07:37 | PROVIDERS: ATTEND Internal Medicine Cardiovascular Disease | DX: I48.20 Chronic atrial fibrillation, unspecified (principal) | CPT/HCPCS: 85610 ==

== ENCOUNTER 2019-04-30 07:20 | Outpatient (CLI) | payer BC, MEDICARE | END 2019-04-30 07:21 | disposition home or self-care (01) | LOC: LAB.S 07:20 | PROVIDERS: ATTEND Internal Medicine Cardiovascular Disease | DX: I48.20 Chronic atrial fibrillation, unspecified (principal) | CPT/HCPCS: 85610 ==

== ENCOUNTER 2019-06-11 07:21 | Outpatient (CLI) | payer BC | END 2019-06-11 07:22 | disposition home or self-care (01) | LOC: LAB.S 07:21 | PROVIDERS: ATTEND Internal Medicine Cardiovascular Disease | DX: I48.20 Chronic atrial fibrillation, unspecified (principal) | CPT/HCPCS: 85610 ==

== ENCOUNTER 2019-07-25 13:32 | Outpatient (CLI) | payer BC | END 2019-07-25 13:33 | disposition home or self-care (01) | LOC: LAB 13:32 | PROVIDERS: ATTEND Internal Medicine Cardiovascular Disease | DX: I48.20 Chronic atrial fibrillation, unspecified (principal) | CPT/HCPCS: 85610 ==

== ENCOUNTER 2019-09-11 12:16 | Outpatient (CLI) | payer BC | END 2019-09-11 12:17 | disposition home or self-care (01) | LOC: LAB 12:16 | PROVIDERS: ATTEND Internal Medicine Cardiovascular Disease | DX: I48.20 Chronic atrial fibrillation, unspecified (principal) | CPT/HCPCS: 85610 ==

== ENCOUNTER 2019-10-23 07:08 | Outpatient (CLI) | payer BC | END 2019-10-23 07:09 | disposition home or self-care (01) | LOC: LAB.S 07:08 | PROVIDERS: ATTEND Internal Medicine Cardiovascular Disease | DX: I48.20 Chronic atrial fibrillation, unspecified (principal) | CPT/HCPCS: 85610 ==

== ENCOUNTER 2019-12-04 07:55 | Outpatient (CLI) | payer BC | END 2019-12-04 07:56 | disposition home or self-care (01) | LOC: LAB.S 07:55 | PROVIDERS: ATTEND Internal Medicine Cardiovascular Disease | DX: I48.20 Chronic atrial fibrillation, unspecified (principal) | CPT/HCPCS: 85610 ==

== ENCOUNTER 2019-12-18 07:42 | Outpatient (CLI) | payer BC | END 2019-12-18 07:43 | disposition home or self-care (01) | LOC: LAB.S 07:42 | PROVIDERS: ATTEND Internal Medicine Cardiovascular Disease | DX: I48.20 Chronic atrial fibrillation, unspecified (principal) | CPT/HCPCS: 85610 ==

== ENCOUNTER 2020-01-28 07:34 | Outpatient (CLI) | payer BC | END 2020-01-28 07:35 | disposition home or self-care (01) | LOC: LAB.S 07:34 | PROVIDERS: ATTEND Internal Medicine Cardiovascular Disease | DX: I48.20 Chronic atrial fibrillation, unspecified (principal) | CPT/HCPCS: 85610 ==

== ENCOUNTER 2020-02-26 12:28 | Outpatient (CLI) | payer BC ==
[2020-02-26 12:37] LABS: BASOPHILS # (AUTO) 0.1 10^3/uL (0.0-0.1); BASOPHILS % (AUTO) 0.9 %; EOSINOPHILS # (AUTO) 0.3 10^3/uL (0.0-0.7); EOSINOPHILS % (AUTO) 2.9 %; HGB - HEMOGLOBIN 13.7 g/dL (14.0-18.0); LYMPHOCYTES # (AUTO) 1.4 10^3/uL (1.5-3.5); LYMPHOCYTES % (AUTO) 16.5 %; MEAN CORPUSCULAR HEMOGLOBIN 34.2 pg (27.0-31.0); MEAN CORPUSCULAR HGB CONC 33.7 g/dL (32.0-36.0); MEAN CORPUSCULAR VOLUME 101.2 fL (80.0-94.0); MEAN PLATELET VOLUME 11.8 fL (7.4-11.4); MONOCYTES # (AUTO) 0.8 10^3/uL (0.0-1.0); MONOCYTES % (AUTO) 9.1 %; PLT - PLATELET COUNT 181 10^3/uL (130-450); RED BLOOD COUNT 4.01 10^6/uL (4.70-6.10); RED CELL DISTRIBUTION WIDTH 12.2 % (12.0-15.0); WHITE BLOOD COUNT 8.6 x10^3/uL (4.8-10.8)
[2020-02-26 12:55] LABS: ALBUMIN 3.9 g/dL (3.2-5.5); ALBUMIN/GLOBULIN RATIO 1.4 (1.0-2.2); ALKALINE PHOSPHATASE 89 IU/L (42-121); ALT ALANINE AMINOTRANSFERASE 22 IU/L (10-60); AST ASPARTATE AMINOTRANSFERASE 20 IU/L (10-42); BILIRUBIN,TOTAL 1.2 mg/dL (0.2-1.0); BUN - BLOOD UREA NITROGEN 22 mg/dL (6-20); CALCIUM 9.2 mg/dL (8.5-10.3); CARBON DIOXIDE - CO2 27 mmol/L (21-32); CHLORIDE 102 mmol/L (101-111); CHOLESTEROL 128 mg/dL; CREATININE 0.9 mg/dL (0.6-1.2); GLUCOSE 108 mg/dL (70-100); HDL CHOLESTEROL 65 mg/dL; LDL CHOLESTEROL,CALCULATED 53 mg/dL; LDL/HDL RATIO 0.8 (<3.6); SODIUM 139 mmol/L (135-145); TOTAL PROTEIN 6.6 g/dL (6.7-8.2); VLDL CHOLESTEROL 10 mg/dL
== END 2020-02-26 12:29 | disposition home or self-care (01) ==
LOC: LAB 12:28
PROVIDERS: ATTEND Internal Medicine Cardiovascular Disease
DX: I48.91 Unspecified atrial fibrillation (principal); Z79.899 Other long term (current) drug therapy
CPT/HCPCS: 36415; 80053; 80061; 83721; 85025

== ENCOUNTER 2020-03-11 07:39 | Outpatient (CLI) | payer BC | END 2020-03-11 07:40 | disposition home or self-care (01) | LOC: LAB.S 07:39 | PROVIDERS: ATTEND Internal Medicine Cardiovascular Disease | DX: I48.20 Chronic atrial fibrillation, unspecified (principal) | CPT/HCPCS: 85610 ==

== ENCOUNTER 2020-05-12 07:45 | Outpatient (CLI) | payer MEDICARE | END 2020-05-12 07:46 | disposition home or self-care (01) | LOC: LAB.S 07:45 | PROVIDERS: ATTEND Internal Medicine Cardiovascular Disease | DX: I48.20 Chronic atrial fibrillation, unspecified (principal) | CPT/HCPCS: 85610 ==

== ENCOUNTER 2020-08-18 08:44 | Outpatient (CLI) | payer MEDICARE | END 2020-08-18 08:45 | disposition home or self-care (01) | LOC: LAB.S 08:44 | PROVIDERS: ATTEND Internal Medicine Cardiovascular Disease | DX: I48.20 Chronic atrial fibrillation, unspecified (principal) | CPT/HCPCS: 36416; 85610 ==

== ENCOUNTER 2020-09-17 11:30 | Outpatient (CLI) | payer MEDICARE | END 2020-09-17 23:59 | disposition home or self-care (01) | LOC: COV 11:30 | PROVIDERS: ATTEND Ophthalmology | DX: Z01.812 Encounter for preprocedural laboratory examination (principal); H25.811 Combined forms of age-related cataract, right eye; Z20.822 Contact with and (suspected) exposure to COVID-19 ==

== ENCOUNTER 2020-09-23 07:39 | Day surgery (SDC) | payer MEDICARE ==
[~2020-09-23 07:39] MED LIST: KETOROLAC 0.45% OPHTH DROPS ONE; PROPARACAINE 0.5% OPHTH DROPS 15 ML ONE
[2020-09-23] MEDS ORDERED: LACTATED RINGERS 500 ML IV ONE ×2 (07:54→09:18)
[2020-09-23] MEDS ORDERED: PHENYLEPHRINE 2.5% OPHTH 2 ML DROPS RIGHTEYE ONE (07:54)
[2020-09-23] MEDS ORDERED: CYCLOPENTOLATE 2% OPHTH DROPS 2 ML RIGHTEYE ONE (07:54)
--- NOTE | 2020-09-23 08:24 | ANESTHESIA ---
Pre-Anesthesia VS, & Labs - Diagnosis right eye senile combined cataract - Procedure right eye cataract extraction with IOL implant Vital Signs: Temp Pulse Resp BP Pulse Ox 36.2 C L 81 12 128/70 96 09/23/20 07:59 09/23/20 07:59 09/23/20 07:59 09/23/20 07:59 09/23/20 07:59 Height: 5 ft 9 in Weight (kg): 72.3 kg Body Mass Index: 23.5 BMI Classification: Healthy weight - NPO >8 hours Home Medications and Allergies Ascorbic Acid [Vitamin C] 1 - 2 tab PO DAILY 07/25/18 Aspirin [Aspirin EC] 81 mg PO DAILY 07/25/18 Atorvastatin Calcium 40 mg PO QPM 07/25/18 Furosemide [Lasix] 20 mg PO DAILY 07/25/18 Latanoprost/Pf [Latanoprost 0.005% Eye Drop] 1 drops EACHEYE QPM 07/25/18 Metoprolol Tartrate [Lopressor] 25 mg PO BID 07/25/18 Travoprost [Travatan Z] 1 drops EACHEYE QPM 07/25/18 Warfarin [Coumadin] 2.5 mg PO DAILY 07/25/18 Warfarin [Coumadin] 5 mg PO 1400 07/25/18 dilTIAZem HCl [Diltiazem 24Hr ER (Xr)] 120 mg PO DAILY 07/25/18 lisinopriL [Lisinopril] 2.5 mg PO DAILY 07/25/18 Allergies/Adverse Reactions: Allergies Allergy/AdvReac Type Severity Reaction Status Date / Time No Known Drug Allergies Allergy Verified 09/29/18 17:25 Anes History & Medical History - Anesthetic History Family history of Anesthesia Complications: Denies Family history of Malignant Hyperthermia: Denies - Medical History Cardiovascular: reports: Hypertension, High cholesterol, Atrial fibrillation Pulmonary: reports: None Gastrointestinal: reports: None Urinary: reports: None Neuro: reports: None Musculoskeletal: reports: None Endocrine/Autoimmune: reports: None Blood Disorders: reports: Anemia Skin: reports: None Smoking Status: Never smoker Psychosocial: reports: Alcohol (2-3 beers per day) History of Cancer?: No - Surgical History Dermatologic: reports: Skin cancer surgery Exam General: Alert, Oriented x3, Cooperative, No acute distress Dental: Dentures full Upper, Dentures full Lower Mouth Openin Fingerbreadth Neck Mobility: Reduced Mallampati classification: IV Thyromental Distance: less than 4 cm Mental/Cognitive Status: Alert/Oriented X3, Normal for patient Plan Anesthesia Type: MAC Consent for Procedure(s) Verified and Reviewed: Yes Code Status: Attempt Resuscitation ASA classification: 3-Severe systemic disease Is this case an emergency?: No
[2020-09-23] MEDS ORDERED: VANCOMYCIN OPHTHALMI 8MG/0.8ML 8 MG/0.8 ML SYRINGE IO ONE (08:30)
[2020-09-23] MEDS ORDERED: PROPARACAINE 0.5% OPHTH DROPS 15 ML EACHEYE ONE (08:30)
[2020-09-23] MEDS ORDERED: BRIMONIDINE 0.2% OPHTH DROPS 5 ML OPTH ONE (08:30)
[2020-09-23] MEDS ORDERED: CHONDR SULF/HYALURONATE SYRINGE IO ONE (08:30)
[2020-09-23] MEDS ORDERED: EPINEPHrine 1 MG/ML AMP IR ONE (08:30)
[2020-09-23] MEDS ORDERED: TRIAMCIN/MOXIFLOX OPHTHALMIC 0.6 ML VIAL IO ONE (08:30)
[2020-09-23] MEDS ORDERED: BSS/LIDOCAINE/EPINEPHRINE 1 ML SYRINGE IO ONE (08:30)
[2020-09-23] MEDS ORDERED: TIMOLOL 0.5% OPHTH DROPS OPTH ONE (08:30)
[2020-09-23] MEDS ORDERED: MIDAZOLAM 2 MG/2 ML VIAL ONE (08:32)
[2020-09-23 09:33] VITALS: BP 116/59
--- NOTE | 2020-09-23 09:59 | OPERATIVE REPORT ---
Operative Report - Other Other Information/Narrative: Date of Surgery: 09/23/20 Preop Dx: Visually significant cataract right eye. This was the first cataract surgery. Postop Dx: Same Procedure: Phacoemulsification with posterior chamber toric intraocular lens implant right eye Surgeon: Dr. Shad Lara Anesthesia: Monitored anesthesia care Complications: None Operative Indications: This is a 85-year-old M with progressive vision loss in the right eye due to 2+ nuclear sclerotic, 1+ cortical, and vacuolar cataract. Best corrected visual acuity was 20/40 with glare to 20/320 vision in the right eye. Indications for surgery were: - Overall decrease in vision - Difficulty seeing street signs - Difficulty driving at night because of headlights from other vehicles - Difficulty with glare or bright lights in any situation The patient was consented at length concerning the risks and benefits of cataract surgery after which the patient expressed a desire to proceed with surgery. Operative Procedure: The patients cornea was marked in the pre-surgical area to indicate the axis for the toric intraocular lens. The patient was taken into OR#3 and placed under monitored anesthesia care. A surgical time-out was conducted confirming correct patient, correct procedure, and correct surgical site. The patient was given topical anesthesia and then prepped and draped in the usual sterile fashion. The eye was entered at the 6 and 3 oclock positions. Intracameral Shugarcaine was injected into the anterior chamber followed by a dispersive viscoelastic. A continuous-tear curvilinear capsulorhexis was performed. The nucleus was hydrodissected and phacoemulsified. The cortex was evacuated using automated infusion and aspiration. A cohesive viscoelastic was injected into the capsular bag and a 21.5 diopter toric intraocular lens was inserted into the bag and rotated to axis 179. Infusion and aspiration were used to evacuate the viscoelastic materials from the eye and the IOL was verified to remain on axis. The wounds were hydrated and the eye inflated to physiologic pressure using balanced salt solution. Approximately 0.25ml of a mixture of triamcinolone and moxifloxacin was injected trans- sclerally into the vitreous in the inferotemporal quadrant using a 30 gauge cannula. An additional 0.55ml of a mixture of triamcinolone, moxifloxacin, and vancomycin was injected subconjunctivally in the superior quadrant for infection and inflammation prophylaxis. Wound integrity was checked with Weck-Dede sponges and the IOL axis was once again verified to be on the correct axis. The patient was taken from the operating room in good condition and given post-op instructions.
--- NOTE | 2020-09-23 13:42 | ANESTHESIA POST OP EVALUATION ---
Anesthesia Post Eval - Post Anesthesia Eval Vitals: Last Vital Signs Temp 36 C L 09/23/20 09:32 Pulse 89 09/23/20 09:32 Resp 14 09/23/20 09:32 BP 116/59 L 09/23/20 09:32 Pulse Ox 96 09/23/20 09:32 CV Function Including HR & BP: Stable Pain Control: Satisfactory Nausea & Vomiting: Negative Mental Status: Baseline Respiratory Status: Airway Patent Hydration Status: Satisfactory Anesthesia Complications: None
== END 2020-09-23 07:40 | disposition home or self-care (01) ==
LOC: SDS 07:39
PROVIDERS: ATTEND Ophthalmology
DX: H25.811 Combined forms of age-related cataract, right eye (principal); H40.1190 Primary open-angle glaucoma, unspecified eye, stage unspecified; I48.91 Unspecified atrial fibrillation; Z79.01 Long term (current) use of anticoagulants
CPT/HCPCS: 66984; A9270; J3490; J7120; V2632

== ENCOUNTER 2020-10-13 08:03 | Outpatient (CLI) | payer MEDICARE ==
[2020-10-13 14:55] LABS: HCT - HEMATOCRIT 41.9 % (42.0-52.0); HGB - HEMOGLOBIN 13.5 g/dL (14.0-18.0); MEAN CORPUSCULAR HEMOGLOBIN 32.2 pg (27.0-31.0); MEAN CORPUSCULAR HGB CONC 32.2 g/dL (32.0-36.0); MEAN PLATELET VOLUME 12.9 fL (7.4-11.4); RED BLOOD COUNT 4.19 10^6/uL (4.70-6.10); RED CELL DISTRIBUTION WIDTH 12.5 % (12.0-15.0); WHITE BLOOD COUNT 7.4 x10^3/uL (4.8-10.8)
== END 2020-10-13 08:04 | disposition home or self-care (01) ==
LOC: LAB.S 08:03
PROVIDERS: ATTEND Internal Medicine Cardiovascular Disease
DX: I48.20 Chronic atrial fibrillation, unspecified (principal)
CPT/HCPCS: 36415; 85027; 85610

== ENCOUNTER 2020-12-08 07:06 | Outpatient (CLI) | payer MEDICARE | END 2020-12-08 07:07 | disposition home or self-care (01) | LOC: LAB.S 07:06 | PROVIDERS: ATTEND Internal Medicine Cardiovascular Disease | DX: I48.20 Chronic atrial fibrillation, unspecified (principal) | CPT/HCPCS: 36416; 85610 ==

== ENCOUNTER 2021-02-02 07:34 | Outpatient (CLI) | payer MEDICARE | END 2021-02-02 07:35 | disposition home or self-care (01) | LOC: LAB.S 07:34 | PROVIDERS: ATTEND Internal Medicine Cardiovascular Disease | DX: I48.20 Chronic atrial fibrillation, unspecified (principal) | CPT/HCPCS: 36416; 85610 ==

== ENCOUNTER 2021-03-16 07:55 | Outpatient (CLI) | payer MEDICARE | END 2021-03-16 07:56 | disposition home or self-care (01) | LOC: LAB.S 07:55 | PROVIDERS: ATTEND Internal Medicine Cardiovascular Disease | DX: I48.20 Chronic atrial fibrillation, unspecified (principal) | CPT/HCPCS: 36416; 85610 ==

== ENCOUNTER 2021-04-13 08:09 | Outpatient (CLI) | payer MEDICARE | END 2021-04-13 08:10 | disposition home or self-care (01) | LOC: LAB.S 08:09 | PROVIDERS: ATTEND Internal Medicine Cardiovascular Disease | DX: I48.20 Chronic atrial fibrillation, unspecified (principal) | CPT/HCPCS: 36416; 85610 ==

== ENCOUNTER 2021-05-25 07:52 | Outpatient (CLI) | payer MEDICARE | END 2021-05-25 07:53 | disposition home or self-care (01) | LOC: LAB.S 07:52 | PROVIDERS: ATTEND Internal Medicine Cardiovascular Disease | DX: I48.20 Chronic atrial fibrillation, unspecified (principal) | CPT/HCPCS: 36416; 85610 ==

== ENCOUNTER 2021-07-06 07:40 | Outpatient (CLI) | payer MEDICARE | END 2021-07-06 07:41 | disposition home or self-care (01) | LOC: LAB.S 07:40 | PROVIDERS: ATTEND Internal Medicine Cardiovascular Disease | DX: I48.20 Chronic atrial fibrillation, unspecified (principal) | CPT/HCPCS: 36416; 85610 ==

== ENCOUNTER 2021-08-17 07:29 | Outpatient (CLI) | payer MEDICARE | END 2021-08-17 07:30 | disposition home or self-care (01) | LOC: LAB.S 07:29 | PROVIDERS: ATTEND Internal Medicine Cardiovascular Disease | DX: I48.20 Chronic atrial fibrillation, unspecified (principal) | CPT/HCPCS: 36416; 85610 ==

== ENCOUNTER 2022-07-19 08:26 | Outpatient (CLI) | payer MEDICARE | END 2022-07-19 08:27 | disposition home or self-care (01) | LOC: LAB.S 08:26 | PROVIDERS: ATTEND Internal Medicine Cardiovascular Disease | DX: I48.20 Chronic atrial fibrillation, unspecified (principal) | CPT/HCPCS: 36416; 85610 ==

== ENCOUNTER 2022-09-13 07:44 | Outpatient (CLI) | payer MEDICARE | END 2022-09-13 07:45 | disposition home or self-care (01) | LOC: LAB.S 07:44 | PROVIDERS: ATTEND Internal Medicine Cardiovascular Disease | DX: I48.20 Chronic atrial fibrillation, unspecified (principal) | CPT/HCPCS: 36416; 85610 ==

== ENCOUNTER 2022-09-27 07:47 | Outpatient (CLI) | payer MEDICARE | END 2022-09-27 07:48 | disposition home or self-care (01) | LOC: LAB.S 07:47 | PROVIDERS: ATTEND Internal Medicine Cardiovascular Disease | DX: I48.20 Chronic atrial fibrillation, unspecified (principal) | CPT/HCPCS: 36416; 85610 ==

== ENCOUNTER 2022-10-11 08:41 | Outpatient (CLI) | payer MEDICARE | END 2022-10-11 08:42 | disposition home or self-care (01) | LOC: LAB.S 08:41 | PROVIDERS: ATTEND Internal Medicine Cardiovascular Disease | DX: I48.20 Chronic atrial fibrillation, unspecified (principal) | CPT/HCPCS: 36416; 85610 ==

== ENCOUNTER 2022-10-25 08:04 | Outpatient (CLI) | payer MEDICARE | END 2022-10-25 08:05 | disposition home or self-care (01) | LOC: LAB.S 08:04 | PROVIDERS: ATTEND Internal Medicine Cardiovascular Disease | DX: I48.20 Chronic atrial fibrillation, unspecified (principal) | CPT/HCPCS: 36416; 85610 ==

== ENCOUNTER 2022-11-22 07:52 | Outpatient (CLI) | payer MEDICARE | END 2022-11-22 07:53 | disposition home or self-care (01) | LOC: LAB.S 07:52 | PROVIDERS: ATTEND Internal Medicine Cardiovascular Disease | DX: I48.20 Chronic atrial fibrillation, unspecified (principal) | CPT/HCPCS: 36416; 85610 ==

== ENCOUNTER 2022-12-15 11:54 | Emergency (ER) | payer MEDICARE ==
[2022-12-15 12:05] VITALS: BP 107/64; O2SAT 98
--- NOTE | 2022-12-15 12:37 | ED Physician Documentation ---
PD HPI ABD PAIN - Stated complaint Stated Complaint: GI BLEED - Chief complaint Chief Complaint: Abd Pain - History obtained from History obtained from: Patient - Additional information Additional information: 87-year-old gentleman on warfarin for A-fib has had about 3 days of dark stools. No history of GI bleeding. No abdominal pain. His INR was 3.5. He has not taken Pepto-Bismol or recall any foods that would make his stool dark. PD PAST MEDICAL HISTORY - Past Medical History Cardiovascular: Hypertension, High cholesterol, Atrial fibrillation Respiratory: None Neuro: None Endocrine/Autoimmune: None GI: None : None Psych: None Musculoskeletal: None Derm: None - Past Surgical History Past Surgical History: Yes Derm: Skin cancer surgery - Present Medications Home Medications: Ambulatory Orders Medication Instructions Recorded Confirmed Ascorbic Acid [Vitamin C] 1 - 2 tab PO DAILY 07/25/18 12/15/22 Aspirin [Aspirin EC] 81 mg PO DAILY 07/25/18 09/22/20 Atorvastatin Calcium 40 mg PO QPM 07/25/18 09/22/20 Furosemide [Lasix] 20 mg PO DAILY 07/25/18 12/15/22 Latanoprost/Pf [Latanoprost 0.005% 1 drops EACHEYE QPM 07/25/18 09/22/20 Eye Drop] Metoprolol Tartrate [Lopressor] 25 mg PO BID 07/25/18 12/15/22 Travoprost [Travatan Z] 1 drops EACHEYE QPM 07/25/18 09/22/20 Warfarin [Coumadin] 2.5 mg PO DAILY 07/25/18 09/22/20 Warfarin [Coumadin] 5 mg PO 1400 07/25/18 12/15/22 dilTIAZem HCl [Diltiazem 24Hr ER 120 mg PO DAILY 07/25/18 12/15/22 (Xr)] lisinopriL [Lisinopril] 2.5 mg PO DAILY 07/25/18 12/15/22 Omeprazole 40 mg PO DAILY #30 cap 12/15/22 - Allergies Allergies/Adverse Reactions: Allergies Allergy/AdvReac Type Severity Reaction Status Date / Time No Known Drug Allergies Allergy Verified 09/29/18 17:25 - Social History Does the pt smoke?: No Smoking Status: Never smoker Does the pt drink ETOH?: Yes Does the pt have substance abuse?: No - Immunizations Immunizations are current?: Yes - POLST Patient has POLST: No PD ED PE NORMAL - Vitals Vital signs reviewed: Yes - General General: Alert and oriented X 3, No acute distress - Abdomen Abdomen: Soft, Non tender - Rectal Rectal: Other (Small amount of dark stool around the vault sent for guaiac.) - Neuro Neuro: Alert and oriented X 3, Normal speech Results - Vitals Vitals: Vital Signs - 24 hr 12/15/22 11:58 Temperature 36.5 C Heart Rate 98 Respiratory 20 Rate Blood Pressure 107/64 O2 Saturation 98 Oxygen O2 Source Room air - Labs Labs: Microbiology 12/15/22 12:45 Occult Blood - Final Stool Laboratory Tests 12/15/22 12/15/22 12/15/22 12:41 12:41 12:41 WBC 9.2 RBC 3.92 L Hgb 12.9 L Hct 38.9 L MCV 99.2 H MCH 32.9 H MCHC 33.2 RDW 12.7 Plt Count 188 MPV 12.1 H Neut # (Auto) 6.9 H Lymph # (Auto) 1.3 L Chaves # (Auto) 0.7 Eos # (Auto) 0.1 Baso # (Auto) 0.1 Absolute Nucleated RBC 0.00 Nucleated RBC % 0.0 PT 32.6 H INR 3.1 H Sodium 137 Potassium 4.5 Chloride 105 Carbon Dioxide 28 Anion Gap 4.0 L BUN 36 H Creatinine 0.9 Estimated GFR (MDRD) 79 L Glucose 131 H Calcium 9.5 Total Bilirubin 1.2 H AST 12 ALT 11 Alkaline Phosphatase 80 Total Protein 6.8 Albumin 4.2 Globulin 2.6 Albumin/Globulin Ratio 1.6 Lipase 44 PD Medical Decision Making - ED course ED course: 87-year-old gentleman who is slightly supratherapeutic on warfarin presents with an apparently mild upper GI bleed. His hemoglobin is down about a half a point from priors, INR 3.1, BUN 36 and guaiac positive. I recommend admission to him for serial H&H's and consideration of EGD. Patient declined, we talked for a while and came to compromise that as long he was he was feeling okay he would only take a half dose of warfarin tonight, eat a salad with spinach, and return tomorrow for an H&H. Departure - Departure Disposition: 01 Home, Self Care Clinical Impression: Upper GI bleed Condition: Good Record reviewed to determine appropriate education?: Yes Instructions: ED Bleed UGI Stable Prescriptions: Omeprazole 40 mg PO DAILY #30 cap Comments: You were seen today for an apparent upper GI bleed. Your INR p.o. was 3.1. I recommended admission to the hospital for following your INR which you have declined. As a compromise what we have agreed is that she will only take a half dose of warfarin tonight, eat a salad with some vitamin K such as with spinach. And return tomorrow for repeat blood testing. Return sooner if worse.
[2022-12-15 12:50] LABS: BASOPHILS # (AUTO) 0.1 10^3/uL (0.0-0.1); BASOPHILS % (AUTO) 0.8 %; EOSINOPHILS # (AUTO) 0.1 10^3/uL (0.0-0.7); EOSINOPHILS % (AUTO) 1.2 %; HCT - HEMATOCRIT 38.9 % (42.0-52.0); HGB - HEMOGLOBIN 12.9 g/dL (14.0-18.0); LYMPHOCYTES # (AUTO) 1.3 10^3/uL (1.5-3.5); LYMPHOCYTES % (AUTO) 14.5 %; MEAN CORPUSCULAR HEMOGLOBIN 32.9 pg (27.0-31.0); MEAN CORPUSCULAR HGB CONC 33.2 g/dL (32.0-36.0); MEAN CORPUSCULAR VOLUME 99.2 fL (80.0-94.0); MEAN PLATELET VOLUME 12.1 fL (7.4-11.4); MONOCYTES # (AUTO) 0.7 10^3/uL (0.0-1.0); MONOCYTES % (AUTO) 7.3 %; NEUTROPHILS # (AUTO) 6.9 10^3/uL (1.5-6.6); NEUTROPHILS % (AUTO) 75.5 %; PLT - PLATELET COUNT 188 10^3/uL (130-450); RED BLOOD COUNT 3.92 10^6/uL (4.70-6.10); RED CELL DISTRIBUTION WIDTH 12.7 % (12.0-15.0); WHITE BLOOD COUNT 9.2 x10^3/uL (4.8-10.8)
[2022-12-15 13:03] LABS: INR 3.1 (0.8-1.2); PT - PROTHROMBIN TIME 32.6 secs (9.9-12.6)
[2022-12-15 13:12] LABS: ALBUMIN 4.2 g/dL (3.2-5.5); ALBUMIN/GLOBULIN RATIO 1.6 (1.0-2.2); BILIRUBIN,TOTAL 1.2 mg/dL (0.2-1.0); CALCIUM 9.5 mg/dL (8.5-10.3); CREATININE 0.9 mg/dL (0.6-1.3); POTASSIUM 4.5 mmol/L (3.5-4.5); TOTAL PROTEIN 6.8 g/dL (6.4-8.9)
== END 2022-12-15 13:28 | disposition home or self-care (01) ==
LOC: ED 11:54
DX: R79.1 Abnormal coagulation profile (principal); K92.2 Gastrointestinal hemorrhage, unspecified
CPT/HCPCS: 36415; 80053; 82272; 83690; 85025; 85610; 86850; 86900; 86901; 99283

== ENCOUNTER 2022-12-16 09:43 | Emergency (ER) | payer MEDICARE ==
[2022-12-16 09:59] VITALS: BP 93/38; O2SAT 96
[2022-12-16 10:14] LABS: HCT - HEMATOCRIT 36.4 % (42.0-52.0); HGB - HEMOGLOBIN 11.8 g/dL (14.0-18.0)
[2022-12-16 10:21] LABS: INR 2.7 (0.8-1.2); PT - PROTHROMBIN TIME 27.8 secs (9.9-12.6)
[2022-12-16 10:30] LABS: CALCIUM 9.4 mg/dL (8.5-10.3); CREATININE 1.2 mg/dL (0.6-1.3); MAGNESIUM 2.1 mg/dL (1.7-2.3); POTASSIUM 4.9 mmol/L (3.5-4.5)
--- NOTE | 2022-12-16 11:16 | ED Physician Documentation ---
PD HPI GI BLEED - Stated complaint Stated Complaint: RETURN FOR BLOOD TEST - Chief complaint Chief Complaint: General - History obtained from History obtained from: Patient - History of Present Illness Timing - onset: How many days ago (3-4) Timing - details: Abrupt onset, Still present (had small dark stool last night. Not large volume.) Associated symptoms: Black/tarry stool Similar symptoms before: Has not had sx before Recently seen: Emergency Dept (yesterday and was to return today for repeat b lood count and INR.) Review of Systems GI: reports: Bloody / black stool. denies: Abdominal Pain, Vomiting Neurologic: denies: Generalized weakness, Near syncope PD PAST MEDICAL HISTORY - Past Medical History Past Medical History: Yes Cardiovascular: Hypertension, High cholesterol, Atrial fibrillation Respiratory: None Neuro: None Endocrine/Autoimmune: None GI: None : None Psych: None Musculoskeletal: None Derm: None - Past Surgical History Past Surgical History: Yes Derm: Skin cancer surgery - Present Medications Home Medications: Ambulatory Orders Medication Instructions Recorded Confirmed Ascorbic Acid [Vitamin C] 1 - 2 tab PO DAILY 07/25/18 12/16/22 Atorvastatin Calcium 40 mg PO QPM 07/25/18 12/16/22 Furosemide [Lasix] 20 mg PO DAILY 07/25/18 12/16/22 Latanoprost/Pf [Latanoprost 0.005% 1 drops EACHEYE QPM 07/25/18 12/16/22 Eye Drop] Metoprolol Tartrate [Lopressor] 25 mg PO BID 07/25/18 12/16/22 Travoprost [Travatan Z] 1 drops EACHEYE QPM 07/25/18 12/16/22 Warfarin [Coumadin] 2.5 mg PO DAILY 07/25/18 12/16/22 Warfarin [Coumadin] 5 mg PO 1400 07/25/18 12/16/22 dilTIAZem HCl [Diltiazem 24Hr ER 120 mg PO DAILY 07/25/18 12/16/22 (Xr)] lisinopriL [Lisinopril] 2.5 mg PO DAILY 07/25/18 12/16/22 Omeprazole 40 mg PO DAILY #30 cap 12/15/22 12/16/22 - Allergies Allergies/Adverse Reactions: Allergies Allergy/AdvReac Type Severity Reaction Status Date / Time No Known Drug Allergies Allergy Verified 12/16/22 09:49 - Social History Does the pt smoke?: No Smoking Status: Never smoker Does the pt drink ETOH?: Yes Does the pt have substance abuse?: No - Immunizations Immunizations are current?: Yes - POLST Patient has POLST: No PD ED PE NORMAL - General General: Alert and oriented X 3, No acute distress, Well developed/nourished - Respiratory Respiratory: Clear bilaterally - Abdomen Abdomen: Soft, Non tender - Derm Derm: Normal color, Warm and dry - Neuro Neuro: Alert and oriented X 3, No motor deficit, Normal speech Results - Vitals Vitals: Vital Signs - 24 hr 12/16/22 09:49 Temperature 36.5 C Heart Rate 64 Respiratory 16 Rate Blood Pressure 93/38 L O2 Saturation 96 Oxygen O2 Source Room air - Labs Labs: Laboratory Tests 12/16/22 12/16/22 12/16/22 10:10 10:10 10:10 Hgb 11.8 L Hct 36.4 L PT 27.8 H INR 2.7 H Sodium 136 Potassium 4.9 H Chloride 104 Carbon Dioxide 28 Anion Gap 4.0 L BUN 34 H Creatinine 1.2 Estimated GFR (MDRD) 57 L Glucose 131 H Calcium 9.4 Magnesium 2.1 PD Medical Decision Making - ED course Complexity details: reviewed results (mild drop in blood count. He does not want to be in hospital, and he does seem stable enought for outpt treatment. Started on PPI yesterday. Held Coumadin last evening. Staying hydrated. ), considered differential (has melena and is here for repeat blood count. Also held coumadin last night. Has INR 2.7 here. Hgb changed from 12.9 to 11.8, so some loss. He still does not want to be in hospital. He assures he will get close follow up in next few days (is Sunday now, so will call office sunday).), d/w patient, d/w biometrics consultant (Dr. Aguilar, who the patient prefers. He says he will be leaving for out of town for 2 weeks starting Sunday, so is unable to see the patient and get procedure done in appropriate timeframe. refers to Dr. Lundberg. ) Departure - Departure Disposition: 01 Home, Self Care Clinical Impression: Anticoagulant long-term use GI bleed Qualifiers: GI bleed type/associated pathology: melena Qualified Code(s): K92.1 - Melena Condition: Stable Record reviewed to determine appropriate education?: Yes Instructions: ED Bleed UGI Stable Follow-Up: Atif Lundberg MD [Provider Admit Priv/Credential] - Comments: Your blood count today is slightly lower than it was yesterday signifying that there is some element of ongoing bleeding. Return to the ER if you start noticing an increase in the amount of dark stool or if it starts looking actually bloody rather than just dark or you are feeling lightheaded general weakness trouble breathing etc. Otherwise we will want to likely have a scope performed of the stomach to look for the source of bleeding such as ulcer etc. Continue with the medication started yesterday. Take your Coumadin at half dose over the next few days. Stay well-hydrated. I talked with Dr. Aguilar' today and he will be leaving [facility] for a couple of weeks. He suggest that you get into see one of the other surgeons sooner and I gave her the phone number for Dr. Norton who is one of the other surgeons in [facility]. Call them Sunday and explain the situation to the motor equipment commanding officer so they know to get you in sooner for follow-up and evaluation. Forms: PCP List Discharge Date/Time: 12/16/22 11:20
== END 2022-12-16 11:20 | disposition home or self-care (01) ==
LOC: ED 09:43
DX: K92.1 Melena (principal); I48.91 Unspecified atrial fibrillation; I10 Essential (primary) hypertension; Z79.01 Long term (current) use of anticoagulants
CPT/HCPCS: 36415; 80048; 83735; 85014; 85018; 85610; 99283